=== PATIENT | female | born 1945 | race Caucasian/White ===

== ENCOUNTER 2021-06-13 12:06 | Emergency (ER) | payer OTHER, MEDICARE ==
[2021-06-13 12:37] VITALS: PULSE 86; BMI 25.4
[2021-06-13] MEDS ORDERED: ALBUTEROL SO4 HFA INHALER IH ONE ×2 (13:49→13:59)
[2021-06-13 14:10] VITALS: BP 148/67; TEMP 97
[2021-06-13 14:57] LABS: BASO % 0.3 % (0-2.0); EOS % 0.1 % (0-4.5); HEMATOCRIT 33.5 % (32.4-45.2); HEMOGLOBIN 11.3 GM/dL (10.7-15.3); LYMPH % 6.7 % (8-40); MCH 30.2 pg (25.7-33.7); MCHC 33.9 g/dl (32.0-36.0); MEAN CELL VOLUME 89.2 fl (80-96); MEAN PLT VOLUME 8.9 fl (7.5-11.1); MONO % 10.3 % (3.8-10.2); NEUT % 82.6 % (42.8-82.8); PLATELET COUNT 184 10^3/uL (134-434); RBC 3.75 M/mm3 (3.60-5.2); RDW 15.1 % (11.6-15.6); WHITE BLOOD COUNT 9.5 K/mm3 (4.0-10.0)
[2021-06-13] MEDS ORDERED: methylPREDNISolone NA SUCC 125 MG/2 ML VIAL IVPUSH ONE (15:00)
[2021-06-13] MEDS ORDERED: methylPREDNISolone NA SUCC 125 MG/2 ML VIAL ONE (15:05)
[2021-06-13 15:16] LABS: ALBUMIN 3.5 g/dl (3.4-5.0); BLOOD UREA NITROGEN 11.7 mg/dL (7-18); CALCIUM 8.9 mg/dL (8.5-10.1)
[2021-06-13 15:21] LABS: CREATININE 0.7 mg/dL (0.55-1.3)
[2021-06-13 15:22] LABS: BILIRUBIN,TOTAL 0.3 mg/dL (0.2-1); TOT PROT 7.5 g/dl (6.4-8.2)
[2021-06-13 15:25] LABS: N-TERMINAL BNP 495.1 pg/ml (5-125)
== END 2021-06-13 19:01 | disposition home or self-care (01) ==
LOC: JER 12:06
PROC: 3E033GC Introduction of Other Therapeutic Substance into Peripheral Vein, Percutaneous Approach (ICD-10-PCS; principal; 2021-06-13)
DX: R06.02 Shortness of breath (principal)
CPT/HCPCS: 36415; 71045-TC-FY; 71250-TC; 80053; 83880; 85025; 93005; 93010; 99285-25; C9803; U0003; U0005

== ENCOUNTER 2022-05-08 12:33 | Emergency (ER) | payer OTHER, MEDICARE ==
[2022-05-08 12:42] VITALS: TEMP 98; BMI 23.2
[2022-05-08] MEDS ORDERED: BEBTELOVIMAB (EUA) 175 MG/2 ML VIAL IVPUSH ONE (13:01)
[2022-05-08 17:24] VITALS: BP 147/79; PULSE 89
== END 2022-05-08 17:24 | disposition home or self-care (01) ==
LOC: JCOVINFU 12:33
PROC: 3E033GC Introduction of Other Therapeutic Substance into Peripheral Vein, Percutaneous Approach (ICD-10-PCS; principal; 2022-05-08)
DX: U07.1 COVID-19 (principal)
CPT/HCPCS: 99284-25; M0222; Q0222

== ENCOUNTER 2024-11-24 11:17 | Emergency (ER) | payer OTHER, MEDICARE ==
[2024-11-24 11:57] LABS: HEMATOCRIT 38.5 % (32.4-45.2); HEMOGLOBIN 12.6 G/dL (10.7-15.3); MCH 29.8 pg (25.7-33.7); MCHC 32.8 g/dl (32.0-36.0); MEAN PLT VOLUME 8.6 fl (7.5-11.1); PLATELET COUNT 269.6 10^3/uL (134-434); RBC 4.23 10^6/uL (3.60-5.2); RDW 13.6 % (11.6-15.6); WHITE BLOOD COUNT 6.8 10^3/uL (4.0-10.8)
[2024-11-24 12:07] VITALS: BP 155/79; PULSE 89; RESP 18; TEMP 98.1; BMI 20.7
[2024-11-24 12:08] LABS: INR 0.99 (0.83-1.09); PROTHROMBIN TIME (PATIENT) 11.3 SEC (9.7-13.0)
[2024-11-24 12:11] LABS: ACTIVATED PTT 28.2 SECONDS (25.2-36.5)
[2024-11-24 12:28] LABS: ALBUMIN 4.4 g/dl (3.4-5.0); BILIRUBIN,TOTAL 0.5 mg/dl (0.2-1); CREATININE 0.8 mg/dl (0.6-1.3); MAGNESIUM 2.2 mg/dL (1.8-2.4); POTASSIUM 4.2 mmol/L (3.5-5.1); TOT PROT 7.2 g/dl (6.4-8.2)
== END 2024-11-24 14:20 | disposition home or self-care (01) ==
LOC: FER 11:17
DX: R10.31 Right lower quadrant pain (principal); R10.32 Left lower quadrant pain
CPT/HCPCS: 36415; 74177-TC; 80053; 81003; 83735; 85025; 85610; 85730; 87086; 99285-25; Q9967

== ENCOUNTER 2025-01-05 07:25 | Inpatient (IN) | payer OTHER, MEDICARE ==
[2025-01-05 08:33] LABS: BASO % 0.3 % (0-2.0); EOS % 3.4 % (0-4.5); HEMATOCRIT 33.9 % (32.4-45.2); HEMOGLOBIN 11.4 GM/dL (10.7-15.3); LYMPH % 11.4 % (8-40); MCH 29.5 pg (25.7-33.7); MCHC 33.7 g/dl (32.0-36.0); MEAN CELL VOLUME 87.6 fl (80-96); MEAN PLT VOLUME 8.1 fl (7.5-11.1); MONO % 12.4 % (3.8-10.2); NEUT % 72.5 % (42.8-82.8); PLATELET COUNT 223 10^3/uL (134-434); RBC 3.87 M/mm3 (3.60-5.2); RDW 14.4 % (11.6-15.6); WHITE BLOOD COUNT 7.8 K/mm3 (4.0-10.0)
[2025-01-05] MEDS ORDERED: diphenhydrAMINE HCL 25 MG CAPSULE (FP) PO ONE ×2 (08:35→15:03)
[2025-01-05 08:42] LABS: INR 1.14 (0.83-1.09); PROTHROMBIN TIME (PATIENT) 12.4 SEC (9.7-13.0)
[2025-01-05 08:45] LABS: ACTIVATED PTT 27.3 SECONDS (25.2-36.5)
[2025-01-05 08:51] LABS: POTASSIUM 3.9 mmol/L (3.5-5.1)
[2025-01-05] MEDS: diphenhydrAMINE HCL 25 MG CAPSULE (FP) PO ONE ×2 (08:52→17:41)
[2025-01-05] MEDS: SODIUM CHLORIDE 0.9% 500 ML INFUS.BAG IV ONE (08:52)
[2025-01-05 08:53] LABS: ALBUMIN 3.4 g/dl (3.4-5.0); CALCIUM 9.2 mg/dL (8.5-10.1)
[2025-01-05 08:54] LABS: BLOOD UREA NITROGEN 28.9 mg/dL (7-18); MAGNESIUM 1.9 mg/dL (1.8-2.4)
[2025-01-05 08:57] LABS: CREATININE 4.8 mg/dL (0.55-1.3)
[2025-01-05 08:58] LABS: BILIRUBIN,TOTAL 0.3 mg/dL (0.2-1); TOT PROT 6.9 g/dl (6.4-8.2)
[2025-01-05 11:43] LABS: URINE APPEARANCE CLEAR; URINE BILIRUBIN NEGATIVE (NEGATIVE); URINE COLOR YELLOW; URINE GLUCOSE (UA) NEGATIVE (NEGATIVE); URINE KETONE NEGATIVE (NEGATIVE); URINE LEUK ESTERASE NEGATIVE (NEGATIVE); URINE NITRITE NEGATIVE (NEGATIVE); URINE PROTEIN NEGATIVE (NEGATIVE); URINE UROBILINOGEN 0.2 mg/dL (0.2-1.0)
[2025-01-05] MEDS ORDERED: BISACODYL 5 MG TABLET.DR (FP) PO PRN (14:59)
[2025-01-05] MEDS ORDERED: SENNOSIDES 8.6MG TABLET (FP) PO ONE (15:02)
[2025-01-05] MEDS ORDERED: POLYETHYLENE GLYCOL (HEALTHYLAX) 3350 17 GM PACKET PO ONE (15:03)
[2025-01-05] MEDS ORDERED: diphenhydrAMINE HCL 50 MG CAPSULE PO PRN (15:04)
[2025-01-05] MEDS ORDERED: DOCUSATE SODIUM 100 MG CAPSULE (FP) PO ONE (15:18)
[2025-01-05] MEDS ORDERED: SENNOSIDES 8.6MG TABLET (FP) PO PRN (15:18)
[2025-01-05 16:04] VITALS: BMI 23.2
[2025-01-05] MEDS: SODIUM CHLORIDE 1,000 ML IV STA (17:41)
[2025-01-05] MEDS: DOCUSATE SODIUM 100 MG CAPSULE (FP) PO ONE (17:41)
[2025-01-05] MEDS: SENNOSIDES 8.6MG TABLET (FP) PO ONE (17:47)
[2025-01-05] MEDS: SENNOSIDES 8.6MG TABLET (FP) PO SCH (17:51)
[2025-01-05] MEDS: SODIUM CHLORIDE 1,000 ML IV SCH (17:52)
[2025-01-05] MEDS: POLYETHYLENE GLYCOL (HEALTHYLAX) 3350 17 GM PACKET PO ONE (19:05)
[2025-01-05] MEDS: POLYETHYLENE GLYCOL (HEALTHYLAX) 3350 17 GM PACKET PO SCH (22:07)
[2025-01-05] MEDS: diphenhydrAMINE HCL 25 MG CAPSULE (FP) PO PRN (22:08)
[2025-01-05] MEDS: ATORVASTATIN CA 10 MG TABLET (FP) PO SCH (22:08)
[2025-01-05] MEDS: HEPARIN NA (PORCINE) 5,000 UNITS/ML 1ML VIAL SQ SCH (22:20)
[2025-01-06] MEDS: SIMETHICONE 80 MG TAB.CHEW (FP) PO PRN (03:50)
[2025-01-06] MEDS: amLODIPine BESYLATE 10 MG TABLET (FP) PO SCH (09:31)
[2025-01-06 09:35] LABS: HEMATOCRIT 33.3 % (32.4-45.2); HEMOGLOBIN 11.4 GM/dL (10.7-15.3); MCHC 34.3 g/dl (32.0-36.0); MEAN CELL VOLUME 87.5 fl (80-96); MEAN PLT VOLUME 8.3 fl (7.5-11.1); PLATELET COUNT 220 10^3/uL (134-434); RBC 3.81 M/mm3 (3.60-5.2); RDW 14.5 % (11.6-15.6); WHITE BLOOD COUNT 7.9 K/mm3 (4.0-10.0)
[2025-01-06] MEDS: DOCUSATE SODIUM 100 MG CAPSULE (FP) PO SCH (09:36)
[2025-01-06 09:54] LABS: POTASSIUM 3.8 mmol/L (3.5-5.1); POTASSIUM 3.9 mmol/L (3.5-5.1)
[2025-01-06 09:56] LABS: CALCIUM 9.2 mg/dL (8.5-10.1)
[2025-01-06 09:57] LABS: BLOOD UREA NITROGEN 29.2 mg/dL (7-18)
[2025-01-06 09:58] LABS: CALCIUM 8.9 mg/dL (8.5-10.1); MAGNESIUM 1.9 mg/dL (1.8-2.4)
[2025-01-06 09:59] LABS: BLOOD UREA NITROGEN 28.8 mg/dL (7-18)
[2025-01-06 10:00] LABS: CREATININE 4.7 mg/dL (0.55-1.3); PHOSPHOROUS 4.3 mg/dL (2.5-4.9)
[2025-01-06 10:02] LABS: CREATININE 4.7 mg/dL (0.55-1.3)
[2025-01-06] MEDS: ASPIRIN COATED 81 MG TABLET.EC PO SCH (12:22)
[2025-01-06] MEDS ORDERED: LORazepam 2 MG/ML SDV VIAL IVPUSH PRN (17:09)
[2025-01-06] MEDS: LACTATED RINGERS SOLUTION 1,000 ML/1,000 ML INFUS.BAG IV SCH (17:42)
[2025-01-06] MEDS: ALBUTEROL SO4 2.5/IPRATROPIUM 0.5 INH SOL 3 ML VIAL.NEB. NEB ONE (23:40)
[2025-01-07] MEDS: FAMOTIDINE 20 MG TABLET PO SCH (12:29)
[2025-01-07 16:23] LABS: BASO % 0.6 % (0-2.0); EOS % 4.8 % (0-4.5); HEMATOCRIT 31.9 % (32.4-45.2); LYMPH % 18.3 % (8-40); MCH 29.9 pg (25.7-33.7); MCHC 34.5 g/dl (32.0-36.0); MEAN CELL VOLUME 86.7 fl (80-96); MEAN PLT VOLUME 8.3 fl (7.5-11.1); MONO % 11.2 % (3.8-10.2); NEUT % 65.1 % (42.8-82.8); PLATELET COUNT 217 10^3/uL (134-434); RBC 3.68 M/mm3 (3.60-5.2); RDW 14.3 % (11.6-15.6)
[2025-01-07] MEDS: ASPIRIN 81 MG CHEWABLE TABLETS PO SCH (18:11)
[2025-01-07] MEDS: ACETAMINOPHEN 1000 MG/100 ML BAG IVPB ONE (18:24)
[2025-01-07 18:54] LABS: BASO % 0.8 % (0-2.0); EOS % 5.2 % (0-4.5); HEMATOCRIT 32.1 % (32.4-45.2); HEMOGLOBIN 10.9 GM/dL (10.7-15.3); MCH 29.4 pg (25.7-33.7); MCHC 33.9 g/dl (32.0-36.0); MEAN CELL VOLUME 86.7 fl (80-96); MEAN PLT VOLUME 8.1 fl (7.5-11.1); MONO % 10.1 % (3.8-10.2); NEUT % 65.9 % (42.8-82.8); PLATELET COUNT 231 10^3/uL (134-434); RDW 14.3 % (11.6-15.6)
[2025-01-07] MEDS: MELATONIN 5 MG TABLETS PO ONE (21:03)
[2025-01-08 09:25] LABS: POTASSIUM 3.5 mmol/L (3.5-5.1)
[2025-01-08 09:27] LABS: ALBUMIN 3.4 g/dl (3.4-5.0); CALCIUM 8.6 mg/dL (8.5-10.1); MAGNESIUM 1.6 mg/dL (1.8-2.4)
[2025-01-08 09:30] LABS: CREATININE 3.1 mg/dL (0.55-1.3)
[2025-01-08 09:32] LABS: BILIRUBIN,TOTAL 0.4 mg/dL (0.2-1)
[2025-01-08] MEDS: MAGNESIUM 2GM/50ML STERILE WATER IVPB IVPB ONE (12:32)
[2025-01-08] MEDS: SODIUM CHLORIDE 1,000 ML IV STA (15:06)
[2025-01-09] MEDS: MELATONIN 5 MG TABLETS PO ONE ×2 (02:24→03:12)
[2025-01-09 08:21] LABS: EOS % 4.8 % (0-4.5); HEMATOCRIT 32.2 % (32.4-45.2); HEMOGLOBIN 10.6 GM/dL (10.7-15.3); LYMPH % 24.3 % (8-40); MCH 28.9 pg (25.7-33.7); MCHC 32.9 g/dl (32.0-36.0); MEAN PLT VOLUME 8.4 fl (7.5-11.1); MONO % 9.1 % (3.8-10.2); NEUT % 59.8 % (42.8-82.8); PLATELET COUNT 236 10^3/uL (134-434); RBC 3.66 M/mm3 (3.60-5.2); RDW 14.2 % (11.6-15.6); WHITE BLOOD COUNT 5.8 K/mm3 (4.0-10.0)
[2025-01-09 08:32] LABS: POTASSIUM 3.2 mmol/L (3.5-5.1)
[2025-01-09 08:37] LABS: ALBUMIN 3.4 g/dl (3.4-5.0); CALCIUM 8.8 mg/dL (8.5-10.1)
[2025-01-09 08:38] LABS: BLOOD UREA NITROGEN 18.6 mg/dL (7-18)
[2025-01-09 08:41] LABS: CREATININE 2.2 mg/dL (0.55-1.3)
[2025-01-09 08:42] LABS: BILIRUBIN,TOTAL 0.4 mg/dL (0.2-1); TOT PROT 6.6 g/dl (6.4-8.2)
[2025-01-09] MEDS: POTASSIUM CHLORIDE TABS 10 MEQ TABLET.ER (FP) PO ONE (11:33)
[2025-01-09] MEDS ORDERED: ALPRAZolam 0.25 MG TABLET PO PRN (16:44)
[2025-01-09] MEDS ORDERED: MELATONIN 5 MG TABLETS PO PRN (20:51)
[2025-01-09 23:03] VITALS: PULSE 65
[2025-01-10 06:54] VITALS: BP 168/60; RESP 18; TEMP 98.2
[2025-01-10 09:09] LABS: EOS % 4.1 % (0-4.5); HEMATOCRIT 32.3 % (32.4-45.2); HEMOGLOBIN 10.6 GM/dL (10.7-15.3); LYMPH % 31.8 % (8-40); MCH 28.9 pg (25.7-33.7); MCHC 32.9 g/dl (32.0-36.0); MEAN CELL VOLUME 87.6 fl (80-96); MEAN PLT VOLUME 7.9 fl (7.5-11.1); MONO % 10.4 % (3.8-10.2); NEUT % 51.7 % (42.8-82.8); PLATELET COUNT 237 10^3/uL (134-434); RBC 3.68 M/mm3 (3.60-5.2); RDW 14.1 % (11.6-15.6); WHITE BLOOD COUNT 5.8 K/mm3 (4.0-10.0)
[2025-01-10 09:20] LABS: POTASSIUM 3.1 mmol/L (3.5-5.1)
[2025-01-10 09:39] LABS: ALBUMIN 3.3 g/dl (3.4-5.0); CALCIUM 8.4 mg/dL (8.5-10.1)
[2025-01-10 09:40] LABS: BLOOD UREA NITROGEN 13.1 mg/dL (7-18); MAGNESIUM 1.6 mg/dL (1.8-2.4)
[2025-01-10 09:43] LABS: CREATININE 1.6 mg/dL (0.55-1.3)
[2025-01-10 09:44] LABS: TOT PROT 6.7 g/dl (6.4-8.2)
[2025-01-10 09:46] LABS: BILIRUBIN,TOTAL 0.5 mg/dL (0.2-1)
[2025-01-10] MEDS: POTASSIUM CHLORIDE ORAL LIQUID 20 MEQ/15 ML PO ONE (13:00)
[2025-01-10] MEDS: MAGNESIUM OXIDE 400 MG TABLET (FP) PO SCH (13:36)
== END 2025-01-10 13:58 | disposition home or self-care (01) | DRG 684 ==
LOC: JER 07:25 → JERBED 12:40 → J7W 14:52
PROVIDERS: ADMIT Internal Medicine; ATTEND Physician Assistant
DX: N17.9 Acute kidney failure, unspecified (principal); I10 Essential (primary) hypertension; E78.5 Hyperlipidemia, unspecified; K21.9 Gastro-esophageal reflux disease without esophagitis; K58.9 Irritable bowel syndrome, unspecified; Z95.2 Presence of prosthetic heart valve; K59.00 Constipation, unspecified; L29.9 Pruritus, unspecified; R23.3 Spontaneous ecchymoses; T36.8X5A Adverse effect of other systemic antibiotics, initial encounter; R33.9 Retention of urine, unspecified; R14.0 Abdominal distension (gaseous)
CPT/HCPCS: 36415; 74176-TC; 76775-TC; 76856-TC; 80048; 80053; 81003; 83605; 83690; 83735; 83935; 84100; 84156; 84300; 85025; 85027; 85610; 85651; 85730; 86038; 86160; 86225; 87040; 87086; 93970-TC; 97116-GP; 97161-GP; 99285-25

== ENCOUNTER 2025-06-16 13:51 | Emergency (ER) | payer OTHER, MEDICARE ==
[2025-06-16 13:56] VITALS: RESP 18; BMI 21.4
[2025-06-16 13:58] VITALS: BP 156/84; PULSE 89; TEMP 97.4
[2025-06-16] MEDS: SODIUM CHLORIDE 500 ML IV STA (14:00)
[2025-06-16 14:49] LABS: ABSOLUTE IMMATURE GRANULOCYTES 0.01 x10^3/uL (0.0-0.031); BASOPHILS # 0.04 x10^3/uL (0.01-0.08); EOSINOPHIL % 0.5 % (0.7-5.8); EOSINOPHILS # 0.05 x10^3/uL (0.04-0.36); MCHC 31.9 g/dl (32.2-35.5); MEAN CELL VOLUME 91.3 fl (79.4-94.8); MEAN PLT VOLUME 9.7 fl (9.4-12.3); MONOCYTE # 0.77 x10^3/uL (0.24-0.86); MONOCYTE % 8.4 % (4.7-12.5); RDW 14.0 % (12.4-16.6)
[2025-06-16 15:07] LABS: ALK PHOS 116.0 U/L (45-117); CO2 25.0 mmol/L (21-32); CREATININE 0.8 mg/dl (0.6-1.3); GLUCOSE,RANDOM 109.0 mg/dl (74-106); SGOT/AST 17.0 U/L (15-37); SGPT/ALT 11.0 U/L (7-52); TOT PROT 7.4 g/dl (6.4-8.2)
[2025-06-16 18:04] LABS: HCV DIAGNOSTIC IN-HOUSE W/RFLX NON-REACTIVE (NONREACTIVE)
[2025-06-16 18:06] LABS: HIV INTERPRETATION NEGATIVE (NEGATIVE)
== END 2025-06-16 15:29 | disposition home or self-care (01) ==
LOC: FER 13:51
PROC: 3E0337Z Introduction of Electrolytic and Water Balance Substance into Peripheral Vein, Percutaneous Approach (ICD-10-PCS; principal; 2025-06-16)
DX: R53.1 Weakness (principal); R05.9 Cough, unspecified; E86.0 Dehydration
CPT/HCPCS: 36415; 71045-TC-FY; 80053; 81003; 82550; 85025; 86803; 87389; 99284-25